=== PATIENT | male | born 2000 | race Caucasian/White ===

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

== ENCOUNTER 2024-12-02 17:12 | Emergency (ER) | payer MEDICAID ==
[~2024-12-02] VITALS: Ht 170.2 cm; Wt 127.3 kg
[2024-12-02] MEDS ORDERED: LIDOCAINE 5% PATCH TOP SCH (17:45)
[2024-12-02] MEDS ORDERED: IBUPROFEN 400MG TABLET PO ONE (17:45)
[2024-12-02] MEDS ORDERED: ACETAMINOPHEN 325MG TABLET PO ONE (17:45)
[2024-12-02 17:47] VITALS: O2SAT 97
[2024-12-03] MEDS ORDERED: ACETAMINOPHEN 325MG TABLET PO NR (01:45)
[2024-12-03] MEDS ORDERED: IBUPROFEN 400MG TABLET PO NR (01:45)
[2024-12-03 02:52] VITALS: BP 140/80; PULSE 101; RESP 18; TEMP 36.9; O2SAT 97
== END 2024-12-03 02:53 | disposition home or self-care (01) ==
LOC: ER 17:12
DX: M54.9 Dorsalgia, unspecified (principal)
CPT/HCPCS: 99281